=== PATIENT | male | born 1990 | race Hispanic/Latino ===

== ENCOUNTER 2018-01-26 19:00 | Emergency (ER) | payer MEDICAID ==
[2018-01-26 19:27] VITALS: BP 115/73
--- NOTE | 2018-01-26 20:02 | XRay Report ---
FINAL REPORT EXAM: XR FOOT 3+V LT HISTORY: Left second toe injury TECHNIQUE: Frontal, lateral and oblique views left foot Comparison: None FINDINGS: There appears to be dorsal dislocation of the middle phalanx of the 2nd toe relative to the proximal phalanx. There is no definite evidence of fracture. IMPRESSION: 1. Appearance of dorsal dislocation of the middle phalanx of the 2nd toe relative to the proximal phalanx.
[2018-01-26] MEDS ORDERED: MOTRIN PO ONE (20:24)
--- NOTE | 2018-01-26 20:29 | Emergency Department Report ---
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 Pain is 10 out of 10 and worse with touch and movement bed or resting. Denies any medical problems. Denies any numbness or team into extremities. Denies any other pain except for left second toe Complaint: foot injury (left second toe) -: This evening Injury: Toes: Left (left second toe deformity due to injury. Pain) Type of Injury: hyperextension Place: street/outdoors Severity: severe Severity scale (0 -10): 10 Improves With: other Worsens With: movement (none), palpation Context: jumping Associated Symptoms: snap/pop sensation, swelling, ambulatory. denies: numbness , tingling Treatments Prior to Arrival: other (none) - Related Data Previous Rx's Medication Instructions Recorded Last Taken Type Ibuprofen [Motrin] 600 mg PO Q8H PRN #12 tablet 01/26/18 Unknown Rx Allergies Allergy/AdvReac Type Severity Reaction Status Date / Time No Known Allergies Allergy Unverified 01/26/18 19:27 ED Review of Systems ROS: Stated complaint: BROKEN TOE Other details as noted in HPI Constitutional: denies: chills, fever Respiratory: denies: cough, shortness of breath, SOB with exertion, SOB at rest , wheezing Cardiovascular: denies: chest pain, palpitations, edema, syncope Gastrointestinal: denies: nausea, vomiting Musculoskeletal: joint swelling, arthralgia. denies: back pain, myalgia Skin: pruritus. denies: rash, lesions Neurological: denies: weakness, numbness, paresthesias, confusion ED Past Medical Hx - Past Medical History Previous Medical History?: No - Surgical History Past Surgical History?: No - Family History Family history: hypertension - Social History Smoking Status: Current Every Day Smoker Substance Use Type: None - Medications Home Medications: Home Medications Medication Instructions Recorded Confirmed Last Taken Type Ibuprofen [Motrin] 600 mg PO Q8H PRN #12 tablet 01/26/18 Unknown Rx ED Physical Exam - General Limitations: No Limitations General appearance: alert, in no apparent distress - Head Head exam: Present: atraumatic, normocephalic, normal inspection - Eye Eye exam: Present: normal appearance, PERRL, EOMI Pupils: Present: normal accommodation - ENT ENT exam: Present: normal exam, normal orophraynx, mucous membranes moist - Neck Neck exam: Present: normal inspection, full ROM. Absent: tenderness, lymphadenopathy - Respiratory Respiratory exam: Present: normal lung sounds bilaterally. Absent: respiratory distress, chest wall tenderness - Cardiovascular Cardiovascular Exam: Present: normal rhythm, tachycardia. Absent: systolic murmur, diastolic murmur - GI/Abdominal GI/Abdominal exam: Present: normal bowel sounds - Extremities Exam Extremities exam: Present: full ROM (Limited range of motion with active and passive range of motion to left second toe to left foot.), tenderness (left second toe left foot), joint swelling (left second toe left foot), other (No cce. + 2 pulses in all extremities, no neurovascular compromise except left second toe left foot deformed, tender to palpation with mild swelling and appears to be dislocated dorsally.). Absent: normal inspection, normal capillary refill, pedal edema, calf tenderness - Expanded Lower Extremity Exam Left Hip exam: Present: normal inspection, full ROM, pelvic stability. Absent: tenderness, swelling, abrasion, laceration, ecchymosis, deformity, crepidus, dislocation, erythema, external rotation, internal rotation, shortening Upper Leg exam: Present: normal inspection, full ROM. Absent: tenderness, swelling, abrasion, laceration, ecchymosis, deformity, crepidus, dislocation, erythema Knee exam: Present: normal inspection, full ROM, full knee extension. Absent: tenderness, swelling, abrasion, laceration, ecchymosis, deformity, crepidus, dislocation, erythema, effusion, pain w/ pronation/supination Lower Leg exam: Present: normal inspection, full ROM. Absent: tenderness, swelling, abrasion, laceration, ecchymosis, deformity, crepidus, dislocation, erythema, palpable cord, Snow's sign Ankle exam: Present: normal inspection, full ROM. Absent: tenderness, swelling , abrasion, laceration, ecchymosis, deformity, crepidus, dislocation, erythema, anterior draw sign Foot/Toe exam: Present: full ROM, tenderness (tenderness to left second toe on the left foot), swelling (the second toe left foot), deformity (left second toe left foot). Absent: normal inspection, abrasion, laceration, ecchymosis, crepidus, dislocation, erythema, amputation, puncture wound, foreign body, calcaneal tenderness, tenderness at base of 5th metatarsal, nail avulsion, subungual hematoma Neuro vascular tendon exam: Absent: no vascular compromise, pulse deficit, abnormal cap refill, motor deficit, sensory deficit, tendon deficit, extremity cold to touch, pallor, abnormal 2-point discrimination, decreased fine/light touch, foot drop, peroneal nerve deficit, significant pain with passive ROM of distal joint Gait: Positive: observed and limited by pain - Back Exam Back exam: Present: normal inspection, full ROM. Absent: tenderness, vertebral tenderness - Neurological Exam Neurological exam: Present: alert, oriented X3, normal gait - Psychiatric Psychiatric exam: Present: normal affect, normal mood - Skin Skin exam: Present: warm, dry, intact, normal color. Absent: rash ED Course Vital Signs 01/26/18 01/26/18 19:23 20:29 Temperature 98.5 F Pulse Rate 105 H 98 H Respiratory 16 Rate Blood Pressure 115/73 O2 Sat by Pulse 97 Oximetry - Reevaluation(s) Reevaluation #1: 01/26/18 20:32 Patient given Motrin 800 mg by mouth emergency room for left second toe pain of left foot. Reevaluation #2: 01/26/18 20:37 Patient left second toe reduced and awaiting x-ray confirmation. Reevaluation #3: 01/26/18 21:10 Post reduction x-ray of left foot at the second second toe reduced successfully. Rc taped and postop shoe - Orthopedic Joint Reduction Joint #1 Consent Obtained: verbal consent Time Out Performed: Yes Side: left Joint Reduction Location: toe (left foot at the second toe) Analgesia: none Amount of Anesthetic Used (mls): 0 Post-Reduction Neuro Exam: intact Post-Reduction Vascular Exam: intact Post Reduction X-Ray Obtained: Yes Splint Applied: Yes (rc taped) Patient Tolerated Procedure: well, no complications Additional Comments: Patient with good color, sensation, movement and temperature to both feet. +2 pedal pulses ED Lower Extremity MDM - Radiology Data Radiology results: report reviewed X-ray of left foot 3 views dictated by radiologist and report reviewed by myself. Please see details below Patient: ROSIO MOSS MR#: [id number] : 1990 Acct:[id number] Age/Sex: 27 / M ADM Date: 01/26/18 Loc: ED Attending Dr: Ordering Physician: BENIGNO TOM MD Date of Service: 01/26/18 Procedure(s): XR foot 3+V LT Accession Number(s): [id number] cc: BENIGNO TOM MD Fluoro Time In Minutes: FINAL REPORT EXAM: XR FOOT 3+V LT HISTORY: Left second toe injury TECHNIQUE: Frontal, lateral and oblique views left foot Comparison: None FINDINGS: There appears to be dorsal dislocation of the middle phalanx of the 2nd toe relative to the proximal phalanx. There is no definite evidence of fracture. IMPRESSION: 1. Appearance of dorsal dislocation of the middle phalanx of the 2nd toe relative to the proximal phalanx. Transcribed By: ED Dictated By: LARISA VALE MD Electronically Authenticated By: LARISA VALE MD Signed Date/Time: 01/26/182000 DD/ 00 TD/TT: 01/26/182000 Patient: ROSIO MOSS MR#: [id number] : 1990 Acct:[id number] Age/Sex: 27 / M ADM Date: 01/26/18 Loc: ED Attending Dr: Ordering Physician: BRANDIE CORTEZ Date of Service: 01/26/18 Procedure(s): XR toe(s) 2+V LT Accession Number(s): [id number] cc: BRANDIE CORTEZ Fluoro Time In Minutes: FINAL REPORT EXAM: XR TOE(S) 2+V LT HISTORY: dislocation of left foot left second toe. TECHNIQUE: Frontal, lateral, oblique views left toes Comparison: Pre reduction study also performed today FINDINGS: Bony alignment is normal. There is no evidence of fracture or dislocation. The joint spaces are maintained. The soft tissues are unremarkable. IMPRESSION: 1. No evidence of fracture or dislocation following successful reduction of 2nd toe. Transcribed By: ED Dictated By: LARISA VALE MD Electronically Authenticated By: LARISA VALE MD Signed Date/Time: 01/26/182123 DD/ 23 TD/TT: 01/26/182123 - Medical Decision Making This is a 27-year-old male here reported that he was performing and jumped off a stage at a concert and landed on his left foot and his left second toe went back and now is performed and is here to be seen. Patient was seen and examined by myself and physical exam is normal except he has left foot exam with left second toe deformity appears to be dislocated, mild swelling with tenderness to palpate. +2 pedal pulses and no neurovascular compromise. Please see procedure note for reduction of left second toe left foot. Prereduction x-ray of left foot 3 views dictated by radiologist and report reviewed by myself and shows dislocated dorsally. Left foot at second toe reduced and postreduction x-ray showed successful reduction. Second toe taped to the third toe and patient given postop shoe. Patient tolerated procedure well please see procedure note for details. He was given Motrin 800 mg prior to procedure. Patient discharged home to follow up with orthopedic doctor in 2-3 days and he was given prescription for Motrin. I encouraged him to leave splint on for 3-5 days and to apply ice to affected area. - Differential Diagnosis FX VS dislocation, sprain, strain Critical care attestation.: If time is entered above; I have spent that time in minutes in the direct care of this critically ill patient, excluding procedure time. ED Disposition Clinical Impression: Arthralgia of left foot Dislocation of second toe, left, closed Qualifiers: Encounter type: initial encounter Qualified Code(s): S93.105A - Unspecified dislocation of left toe(s), initial encounter Disposition: TO HOME OR SELFCARE Is pt being admited?: No Does the pt Need Aspirin: No Condition: Stable Instructions: Foot Contusion (ED), Arthralgia (ED), RICE Therapy (ED) Additional Instructions: Please follow up with orthopedic doctor in 2-3 days Take Motrin as prescribed for pain but please do not take on empty stomach as this can cause nausea or upset stomach lining and See discharge instruction on rice therapy Prescriptions: Ibuprofen [Motrin] 600 mg PO Q8H PRN #12 tablet PRN Reason: Pain Referrals: PRIMARY CARE, [Primary Care Provider] - 2-3 Days [facility] [Outside] - 2-3 Days RYAN PARRA MD [Staff Physician] - 2-3 Days Forms: Accompanied Note, Work/School Release Form(ED)
--- NOTE | 2018-01-26 21:25 | XRay Report ---
FINAL REPORT EXAM: XR TOE(S) 2+V LT HISTORY: dislocation of left foot left second toe. TECHNIQUE: Frontal, lateral, oblique views left toes Comparison: Pre reduction study also performed today FINDINGS: Bony alignment is normal. There is no evidence of fracture or dislocation. The joint spaces are maintained. The soft tissues are unremarkable. IMPRESSION: 1. No evidence of fracture or dislocation following successful reduction of 2nd toe.
== END 2018-01-26 21:30 | disposition home or self-care (01) ==
LOC: ED 19:00
DX: S93.105A Unspecified dislocation of left toe(s), initial encounter (principal); F17.200 Nicotine dependence, unspecified, uncomplicated; X58.XXXA Exposure to other specified factors, initial encounter; Y93.39 Activity, other involving climbing, rappelling and jumping off; Y99.8 Other external cause status; Y92.410 Unspecified street and highway as the place of occurrence of the external cause